=== PATIENT | male | born 1985 | race Hispanic/Latino ===

== ENCOUNTER 2022-10-21 19:29 | Emergency (ER) | payer OTHER ==
[~2022-10-21] VITALS: Ht 172.7 cm; Wt 130.6 kg
[2022-10-21 21:40] VITALS: BP 140/68
== END 2022-10-21 21:40 | disposition home or self-care (01) ==
LOC: EDH 19:29
DX: M25.562 Pain in left knee (principal); M54.50 Low back pain, unspecified; W01.0XXA Fall on same level from slipping, tripping and stumbling without subsequent striking against object, initial encounter; Y93.89 Activity, other specified; Y92.89 Other specified places as the place of occurrence of the external cause; Y99.0 Civilian activity done for income or pay
CPT/HCPCS: 72110; 73562

== ENCOUNTER → 2025-02-23 | Outpatient (CLI) | payer OTHER ==
[2025-02-23 14:46] LABS: HEMATOCRIT 44.5 % (42-54); MEAN CORPUSCULAR HEMOGLOBIN 28.4 pg (27.0-33.0); MEAN CORPUSCULAR HGB CONC 32.8 g/dL (32.0-36.0); MEAN CORPUSCULAR VOLUME 86.6 fL (79-99); RED BLOOD CELL COUNT(AUTO) 5.14 MIL/uL (4.50-6.20); WHITE BLOOD COUNT (AUTO) 6.8 K/uL (4.8-10.8)
[2025-02-23 15:12] LABS: HEMOGLOBIN A1C 5.6 % (4.0-6.0)
[2025-02-23 15:13] LABS: ALBUMIN 3.8 g/dL (3.5-5.0); BILIRUBIN,TOTAL 0.6 mg/dL (0.2-1.0); CREATININE 0.9 mg/dL (0.5-1.3); POTASSIUM 3.7 mmol/L (3.5-5.1); THYROID STIMULATING HORMONE 2.08 uIU/mL (0.36-3.74)
== END | disposition home or self-care (01) ==
LOC: LAB 14:13
PROVIDERS: ATTEND Nurse Practitioner Adult Health
DX: R53.83 Other fatigue (principal); E11.65 Type 2 diabetes mellitus with hyperglycemia; R97.20 Elevated prostate specific antigen [PSA]; M06.9 Rheumatoid arthritis, unspecified; Z00.00 Encounter for general adult medical examination without abnormal findings; M10.9 Gout, unspecified; R86.1 Abnormal level of hormones in specimens from male genital organs; E03.8 Other specified hypothyroidism; E78.2 Mixed hyperlipidemia
CPT/HCPCS: 36415; 80053; 80061; 83036; 84153; 84443; 85027

== ENCOUNTER → 2025-03-03 | Outpatient (CLI) | payer OTHER, SELFPAY ==
[2025-03-03 22:56] VITALS: PULSE 64; RESP 20
[2025-03-03 23:30] VITALS: PULSE 62; RESP 16
[2025-03-04] VITALS (12 sets, daily range): PULSE 54–64; RESP 14–20
== END | disposition home or self-care (01) ==
LOC: SLP 20:31
PROVIDERS: ATTEND Nurse Practitioner Adult Health
DX: G47.33 Obstructive sleep apnea (adult) (pediatric) (principal); G47.34 Idiopathic sleep related nonobstructive alveolar hypoventilation; R06.83 Snoring; Z99.89 Dependence on other enabling machines and devices
CPT/HCPCS: 95811